=== PATIENT | female | born 1955 | race Caucasian/White ===

== ENCOUNTER 2021-01-10 03:58 | Emergency (ER) | payer OTHER ==
[2021-01-10] MEDS ORDERED: traMADol 50 MG Tab PO STA (04:03)
[2021-01-10] MEDS ORDERED: Gabapentin 300 MG Cap PO STA (04:03)
[2021-01-10] MEDS ORDERED: Ketorolac 30 MG/ML SDV IM STA (04:48)
[2021-01-10] MEDS ORDERED: Acetaminophen/HYDROcodone 325-5 MG Tab PO STA (04:48)
--- NOTE | 2021-01-10 05:19 | EDM.PDOC ---
ED HPI GENERAL MEDICAL PROBLEM - General Chief Complaint: Back Pain or Injury Stated Complaint: LEFT SHOULDER&ARM PAIN Time Seen by Provider: 01/10/21 04:15 Source of Information: Reports: Patient History Limitations: Reports: No Limitations - History of Present Illness INITIAL COMMENTS - FREE TEXT/NARRATIVE: Patient presented to the ED because of a sharp and burning pain from her left shoulder to the left arm. The pain is 10/10. She applied lidoderm patch with mild relief. She had shingles in the past and the pain is similar, although she doesn't have the rash yet. I the past the rash appeared 4 days after the onset of pain. Back Pain Score (Numeric/FACES): 10 - Related Data Allergies Allergy/AdvReac Type Severity Reaction Status Date / Time No Known Allergies Allergy Verified 02/23/14 17:04 Home Meds: Home Meds Amitriptyline [Elavil] 1 tab PO BEDTIME 02/23/14 [History] Aspirin [Ecotrin EC] 1 tab PO DAILY 02/23/14 [History] Diltiazem [Cardizem] 2 tab PO DAILY 02/23/14 [History] Simvastatin [Zocor] 1 tab PO DAILY 02/23/14 [History] Acetaminophen/HYDROcodone [HYDROcodone-Acetaminophen 5-325 MG *] 1 tab PO Q4H PRN #15 each 01/10/21 [Rx] Acyclovir 800 mg PO 5XDAY #40 tablet 01/10/21 [Rx] Gabapentin [Neurontin] 300 mg PO TID #30 capsule 01/10/21 [Rx] Past Medical History Cardiovascular History: Reports: Arrhythmia - Infectious Disease History Infectious Disease History: Reports: Shingles Social & Family History - Family History Family Medical History: No Pertinent Family History - Tobacco Use Tobacco Use Status *Q: Never Tobacco User - Caffeine Use Caffeine Use: Reports: None - Recreational Drug Use Recreational Drug Use: No ED ROS GENERAL - Review of Systems Review Of Systems: See Below Constitutional: Reports: No Symptoms HEENT: Reports: No Symptoms Respiratory: Reports: No Symptoms Cardiovascular: Reports: No Symptoms Endocrine: Reports: No Symptoms GI/Abdominal: Reports: No Symptoms : Reports: No Symptoms Musculoskeletal: Reports: No Symptoms Skin: Reports: No Symptoms Neurological: Reports: No Symptoms Psychiatric: Reports: No Symptoms Hematologic/Lymphatic: Reports: No Symptoms ED EXAM, GENERAL - Physical Exam Exam: See Below Exam Limited By: No Limitations General Appearance: Alert, No Apparent Distress Ears: Normal External Exam, Normal Canal Nose: Normal Inspection, Normal Mucosa, No Blood Throat/Mouth: Normal Inspection, Normal Lips, Normal Teeth Head: Atraumatic, Normocephalic Neck: Normal Inspection, Supple, Non-Tender, Full Range of Motion Respiratory/Chest: No Respiratory Distress, Lungs Clear, Normal Breath Sounds, No Accessory Muscle Use, Chest Non-Tender Cardiovascular: Normal Peripheral Pulses, Regular Rate, Rhythm, No Edema, No Gallop, No JVD, No Murmur, No Rub GI/Abdominal: Normal Bowel Sounds, Soft, Non-Tender, No Organomegaly, No Distention Back Exam: Normal Inspection, Full Range of Motion #1 Interpretation EKG Date: 01/10/21 Time: 05:11 Rhythm: NSR Rate (Beats/Min): 63 [place]: Normal P-Wave: Present QRS: Normal ST-T: Normal QT: Prolonged CT/PQ Interval: 154 Comparison: No Change EKG Interpretation Comments: NSR LAE Prolonged QT Course - Vital Signs Text/Narrative:: Neurontin 300 mg PO x1 Tramadol 100 mg PO x1 [place] 5 mg, 2 PO x1 Toradol 60 mg IM x1 Last Recorded V/S: Last Vital Signs Temp 36.6 C 01/10/21 04:00 Pulse 79 01/10/21 04:00 Resp 20 01/10/21 04:00 BP 153/74 H 01/10/21 04:00 Pulse Ox 97 01/10/21 04:00 - Orders/Labs/Meds Orders: Active Orders 24 hr Category Date Time Status EKG 12 Lead [EK] Routine Ther 01/10/21 05:06 Ordered Meds: Medications Discontinued Medications Generic Name Dose Route Start Last Admin Trade Name Freq PRN Reason Stop Dose Admin Hydrocodone Bitart/Acetaminophen 2 tab 01/10/21 04:48 01/10/21 04:58 Acetaminophen/Hydrocodone 325-5 Mg Tab PO 01/10/21 04:49 2 tab NOW STA Administration Gabapentin 300 mg 01/10/21 04:03 01/10/21 04:07 Gabapentin 300 Mg Cap PO 01/10/21 04:04 300 mg NOW STA Administration Ketorolac Tromethamine 60 mg 01/10/21 04:48 01/10/21 04:56 Ketorolac 30 Mg/Ml Sdv IM 10/05/21 04:49 60 mg NOW STA Administration Tramadol HCl 100 mg 01/10/21 04:03 01/10/21 04:07 Tramadol 50 Mg Tab PO 01/10/21 04:04 100 mg NOW STA Administration Departure - Departure Time of Disposition: 06:00 Disposition: Home, Self-Care 01 Condition: Good Clinical Impression: Arm pain, Herpes zoster - Discharge Information Prescriptions: Acyclovir 800 mg PO 5XDAY #40 tablet Acetaminophen/HYDROcodone [HYDROcodone-Acetaminophen 5-325 MG *] 1 tab PO Q4H PRN #15 each PRN Reason: Pain Gabapentin [Neurontin] 300 mg PO TID #30 capsule Instructions: Shingles, [id number], Postherpetic Neuralgia Referrals: PCP,None [Primary Care Provider] - Forms: ED Department Discharge Additional Instructions: Please read discharge instructions on Herpes Zoster/Shingles [place]/Gabapentin 300 mg 3 times for 10 days [place] 5 m, 1-2 tablets every 4-6 hours as needed for pain Acyclovir 800 mg 5 times daily for 7 days Follow up as needed Sepsis Event Note (ED) - Evaluation Sepsis Screening Result: No Definite Risk - Focused Exam Vital Signs: Vital Signs Temp Pulse Resp BP Pulse Ox 01/10/21 04:00 36.6 C 79 20 153/74 H 97 - My Orders Last 24 Hours: My Active Orders 01/10/21 05:06 EKG 12 Lead [EK] Routine - Assessment/Plan Last 24 Hours: My Active Orders 01/10/21 05:06 EKG 12 Lead [EK] Routine
== END 2021-01-10 06:18 | disposition home or self-care (01) ==
LOC: FB.ED 03:58
DX: M79.602 Pain in left arm (principal); B02.9 Zoster without complications; Z79.82 Long term (current) use of aspirin; Z79.899 Other long term (current) drug therapy
CPT/HCPCS: 93005; 96372; 99283; A9270; J1885